=== PATIENT | female | born 1990 | race Caucasian/White ===

== ENCOUNTER → 2020-06-05 14:05 | Outpatient (CLI) | payer BC, SELFPAY ==
--- NOTE | ~2020-06-05 | US_ITS ---
US breast BI complete INDICATION: Bilateral breast pain TECHNIQUE: Dedicated bilateral breast ultrasound COMPARISON: No prior studies for comparison. FINDINGS: The breasts are composed of normal heterogeneous echotexture without focal solid or cystic mass. IMPRESSION: 1: Normal bilateral breast ultrasound. BI-RADS CATEGORY 1 - NEGATIVE Reviewed, dictated and finalized at location A. STANT STATISTICIAN
== END ==
PROVIDERS: PCP Family Medicine; Visit Provider Family Medicine
DX: N64.4 Mastodynia (principal)
CPT/HCPCS: 76641

== ENCOUNTER → 2020-12-22 05:09 | Outpatient (CLI) | payer BC, SELFPAY ==
[2020-12-22 21:10] LABS: SARS-CoV-2 RNA PCR Positive
== END ==
PROVIDERS: PCP Family Medicine; Visit Provider Nurse Practitioner Family
DX: U07.1 COVID-19 (principal)
CPT/HCPCS: C9803; U0003; U0005

== ENCOUNTER 2021-04-13 10:11 | Observation (INO) | payer BC, SELFPAY ==
[2021-04-13 10:28] VITALS: TEMP 36.6
[2021-04-13 10:31] VITALS: BP 133/72; PULSE 98
[2021-04-13 10:32] VITALS: BP 133/78; PULSE 98
[2021-04-13 10:58] VITALS: BMI 33.7
--- NOTE | 2021-04-13 10:59 | OBADM ---
This patient, Analia Grace, admitted to the OB room OB Post 113 for observation. Patient/family oriented to hospital policies and general routines including ID bracelet, bed and alarms, visiting hours, pain management, procedures, bathroom and other care routines, personal items, smoking policy, room service/diet, and visiting hours. Patient/Family are encouraged to report perceived risks to care and to ask questions if they do not understand what they are told or what they should do.
--- NOTE | 2021-04-13 11:03 | PC.NURSE ---
Pt was sent over from the office after having 3 contractions in 30 minutes. Pt has a UTI per Tung PENA, orders received for SVE and monitoring.
--- NOTE | 2021-04-16 07:27 | PM.OBTRLD ---
OB - Triage/Final Diagnosis Visit Information Date of evaluation: 04/14/21 Reason for evaluation: threatened labor Comments/Additional reasons for admission: I have assessed the risk for this patient, Analia Arron Grace, and determined that she would benefit from observation care.
== END 2021-04-13 12:40 | disposition home or self-care (01) ==
PROVIDERS: Admitting Provider Obstetrics & Gynecology; PCP Family Medicine; Visit Provider Obstetrics & Gynecology
DX: O47.03 False labor before 37 completed weeks of gestation, third trimester (principal); Z3A.30 30 weeks gestation of pregnancy
CPT/HCPCS: G0378; G0379

== ENCOUNTER 2021-05-30 23:08 | Observation (INO) | payer BC, SELFPAY ==
[2021-05-30 23:25] VITALS: BP 131/80; PULSE 106
[2021-05-30 23:30] VITALS: BP 122/72; PULSE 106
[2021-05-30 23:45] VITALS: BP 132/87; PULSE 107
[2021-05-31] VITALS (18 sets, daily range): BP systolic 117–142; BP diastolic 66–91; PULSE 88–107; TEMP 36.8–37.2; BMI 33.8
--- NOTE | 2021-05-31 02:09 | OBADM ---
This patient, Analia Grace, admitted to the OB room Labor/Delivery/Recovery 105 for observation. Patient/family oriented to hospital policies and general routines including ID bracelet, bed and alarms, visiting hours, pain management, procedures, bathroom and other care routines, personal items, smoking policy, room service/diet, and visiting hours. Patient/Family are encouraged to report perceived risks to care and to ask questions if they do not understand what they are told or what they should do.
[2021-05-31 02:13] LABS: Add Urine Microscopic? YES; Appearance Urine Clear (Clear); Bacteria Urine Trace /hpf; Bilirubin Urine Negative (Negative); Blood Urine Negative (Negative); Color Urine Amber (Yellow); Glucose Urine UA Negative (Negative); Ketones Urine 2+ mg/dL (Negative); Leukocyte Esterase Ur Negative LEU/UL (NEGATIVE); Mucus Urine Few /lpf; Nitrate Urine Negative (Negative); Protein Urine 1+ mg/dL (Negative); Squamous Epithelial Cell Urine Many /hpf (Few); WBC Urine 0-3 /hpf (0-3)
[2021-05-31] MEDS: LACTATED RINGERS 500 ML 999 ML IV CONT (02:40)
[2021-05-31 02:49] LABS: Hematocrit 33.1 % (37.0-47.0); Hemoglobin 11.2 g/dL (12.0-15.0); Mean Corpuscular HGB Conc 33.8 g/dl (32-36); Mean Corpuscular Hemoglobin 29.6 pg (26-34); Mean Corpuscular Volume 87.6 fl (80-100); Mean Platelet Volume 12.1 fl (7.4-10.4); Platelet Count Result 135 k/mm3 (150-375); Red Blood Count 3.78 M/mm3 (4.2-5.4); Red Cell Distribution Width 12.9 % (11.5-14.5); White Blood Count 6.5 K/mm3 (4.5-10.0)
--- NOTE | 2021-06-02 18:09 | PM.OBTRLD ---
OB - Triage/Final Diagnosis Visit Information Date of evaluation: 05/31/21 Reason for evaluation: threatened labor Comments/Additional reasons for admission: I have assessed the risk for this patient, Analia Grace, and determined that she would benefit from observation care. Evaluation Laboratory results: Laboratory Tests 05/31/21 05/31/21 01:38 02:38 WBC 6.5 RBC 3.78 L Hgb 11.2 L Hct 33.1 L MCV 87.6 MCH 29.6 MCHC 33.8 RDW 12.9 Plt Count 135 L MPV 12.1 H Urine Color Claudine Urine Appearance Clear Urine pH 6.0 Ur Specific [place] 1.030 Urine Protein 1+ H Urine Glucose (UA) Negative Urine Ketones 2+ H Ur Blood (Man) Negative Urine Nitrate Negative Urine Bilirubin Negative Urine Urobilinogen 2.0 H Ur Leukocyte Esterase Negative Urine RBC 3-5 H Urine WBC 0-3 Ur Squamous Epith Cells Many H Urine Bacteria Trace Hyaline Casts 1-2 Urine Mucus Few H
== END 2021-05-31 04:20 | disposition home or self-care (01) ==
PROVIDERS: Advanced Practice Midwife; Admitting Provider Obstetrics & Gynecology; PCP Family Medicine; Visit Provider Obstetrics & Gynecology
DX: O47.1 False labor at or after 37 completed weeks of gestation (principal); Z3A.37 37 weeks gestation of pregnancy
CPT/HCPCS: 36415; 81001; 85027; 96374; G0378; G0379; J0131; J7120

== ENCOUNTER 2021-06-03 18:15 | Observation (INO) | payer BC, SELFPAY ==
[2021-06-03 20:00] VITALS: TEMP 36.8; BMI 33.3
[2021-06-03 22:31] VITALS: BP 125/82; PULSE 78
[2021-06-03 23:01] VITALS: BP 99/49; PULSE 101
[2021-06-03] MEDS: ONDANSETRON INJ 4 MG/2 ML VIAL IV PUSH (23:22)
[2021-06-03] MEDS: LACTATED RINGERS 1,000 ML 125 ML IV CONT (23:23)
[2021-06-03] MEDS: fentaNYL CITRATE INJ (*CRX) 100 MCG/2 ML VIAL 50 MCG IV PUSH (23:23)
[2021-06-03 23:26] LABS: Glucose Point of Care 101 mg/dl (65-105)
[2021-06-03 23:30] VITALS: BP 120/79; PULSE 67
[2021-06-04] VITALS (16 sets, daily range): BP systolic 119–135; BP diastolic 72–85; PULSE 65–83; TEMP 36.3–37.1
[2021-06-04] MEDS: fentaNYL CITRATE INJ (*CRX) 100 MCG/2 ML VIAL IV PUSH (01:38)
--- NOTE | 2021-06-09 07:32 | PM.OBTRLD ---
OB - Triage/Final Diagnosis Visit Information Date of evaluation: 06/03/21 Reason for evaluation: threatened labor Comments/Additional reasons for admission: I have assessed the risk for this patient, Analia Heller Sanjay, and determined that she would benefit from observation care. Evaluation Laboratory results: Laboratory Tests 06/03/21 23:21 POC Capillary Glucose 101
== END 2021-06-04 07:30 | disposition home or self-care (01) ==
PROVIDERS: Admitting Provider Obstetrics & Gynecology; PCP Family Medicine; Visit Provider Obstetrics & Gynecology
DX: O47.1 False labor at or after 37 completed weeks of gestation (principal); Z3A.37 37 weeks gestation of pregnancy
CPT/HCPCS: 82948; 96374; 96375; 96376; G0378; G0379; J2405; J3010; J7120

== ENCOUNTER 2021-06-05 23:27 | Inpatient (IN) | payer BC, SELFPAY ==
[2021-06-05 23:45] VITALS: RESP 18; TEMP 36.6
[2021-06-06] VITALS (95 sets, daily range): BP systolic 68–147; BP diastolic 50–102; PULSE 49–92; RESP 14–18; TEMP 36.2–36.8; O2SAT 92–100; BMI 34.3
--- OUTSIDE RECORDS SUMMARY | 2021-06-06 | XMS_ITS | Encounter Summary ---
:1990 Author Care Team Providers Name Role Phone Marylu Frank MD Primary Care Provider [phone] Reason for Visit None recorded. Assessment and Plan 1. Gestational diabetes mellitus , class A>2< ? non-stress test Discussion Note: None recorded.Patient educational handouts: No information available. Plan of Care Reminders Provider Appointments Nst Nst, , EQ UIP 06/08/2021 8:30AM ? Nst Nst, , EQUI P 06/11/2021 9:15AM ? Ob Routine Nova Rogers, 06/11/2021 CNM 9:45AM ? Nst Nst, , EQUI P 06/15/2021 8:30AM ? Induction Tiera The rese 06/15/2021 MD Delta 6:00AM ? Nst Nst, , EQUI P 06/18/2021 9:15AM ? Ob Routine Tiera Bing erese 06/18/2021 MD [place] 9:45AM ? Nst Nst, , EQUI P 06/22/2021 8:30AM ? Nst Nst, , EQUI P 06/25/2021 8:30AM ? U/s Ob Growth Ult rasound Two,
--- OUTSIDE RECORDS SUMMARY | 2021-06-06 | XMS_ITS | Encounter Summary ---
:1990 Author Care Team Providers Name Role Phone Marylu Frank MD Primary Care Provider [phone] Reason for Visit OB visit Assessment and Plan 1. Gestational diabetes mellitus 2. History of hemolysis-elevated liver enzymes-low platelet count syndrome 3. Candidiasis of vagina ? Diflucan 150 mg tablet Discussion Note: None recorded.Patient educational handouts: No [...] P 06/18/2021 9:15AM ? Ob Routine Tiera villanueva 06/18/2021 MD [place] 9:45AM ? Nst Nst, , EQUI P 06/22/2021 8:30AM ? Nst Nst, , EQUI P
--- OUTSIDE RECORDS SUMMARY | 2021-06-06 | XMS_ITS ---
:1990 Author Care Team Providers Name Role Phone DONTE MCCLURE MD Primary Care Provider [phone] Allergies Code Code System Name Reaction Severity Status Onset 0738049 RxNorm Latex ? ? Active ? Medications Name Status Start Date Stop Date ? ? albuterol sulfate HFA 90 mcg/actuation aerosol inhaler Active ? Not available INHALE 2 PUFFS BY MOUTH EVERY 4 HOURS alprazolam 0.5 mg tablet Completed ? 021 TAKE 1 TABLET BY MOUTH EVERY DAY NEEDED aspirin Active ? Not available atenolol 25 mg tablet Completed ? 12/18/2020 TAKE 1 TABLET BY MOUTH EVERY DAY azithromycin 250 mg tablet Completed ? 12/18 TK 2 TS PO ON DAY 1, THEN TK 1 T PO D FOR 4 DAYS Cipro 500 mg tablet Completed 08/29/2013 03/06/2014 take 1 tablet (500MG) by oral route every 12 hours Contour Next Meter Active ? Not available USE TO TEST FOUR TIMES DAILY. Contour Next Test Strips Active ? Not camelia ilable Diflucan 100 mg tablet Completed 07/05/2016 7 take 1 tablet by oral route every day [place]se 50-30 (6)/75-40(5)/125-30(10) tablet Completed 12/12/2016 take 1 tablet by oral route every day for 28 days fluconazole 150 mg tablet Active ? Not av ailable TAKE 1 TABLET BY MOUTH DIRECTED insulin syringe U-100 with needle Active ? Not available 0.3 mL 31 gauge x 5/16 Lutera (28) 0.1 mg-20 mcg tablet Completed 11/04/2011 08/14/2012 take 1 tablet by oral route every day metformin 1,000 mg tablet Active ?
--- OUTSIDE RECORDS SUMMARY | 2021-06-06 | XMS_ITS | Encounter Summary ---
:1990 Author Care Team Providers Name Role Phone Marylu Frank MD Primary Care Provider [phone] Reason for Visit None recorded. Assessment and Plan 1. Gestational diabetes mellitus , class A>2< Pt here for diet teaching. Arlen t over ideal ranges for FBS and pp BS. Went over carb counting and carb ranges for each meal/snack. Gave ideas for foods to eat for meals/snacks. Discussed drink options and to avoid soda and juice. Jhoan d pt she can go online to [employer] for meal options or to look up low carb meal recipes online for ideas as well. Pt is a transfer of care from [facility] and they did an ea rly 1 hr GTT that was abnormal and 3hr G TT was abnormal. She has been checking BS QID for a month. Her FBS are elevated and she was started on 500mg Metformin at HS by [facility]. Told pt to continue checking BS QID and adjusting diet to follow low carb diet to try to keep BS within normal range. Pt is having a lot of nausea and isn't hungry and is having to force herself to eat, so doesn't have very consis tent PP BS. Pt aware of importance of tr andrey to eat meals/snacks and checking BS QID so we know how her sugars are after eating. Pt was rx Zofran by Dr. Sorenson at her last appt and just took her first d ose this morning. Told pt to continue ta kennedy this routinely to help keep nausea under control so she can eat. Pt aware if fasting sugars aren't improving with Metformin we might need to discuss starting insulin. Pt has a needle phobia and ayo lly wants to avoid this. Discussed sugars with AD and Metformin increased to 1000mg at HS. Discussed needing to start NSTs at 32 weeks and serial growth u/s r/t G DM. Pts questions were answered and pt v erbalized understanding. bnwhoctavio RN ? non-stress test Discussion Note: None recorded.Patient educational handouts: No information available. Plan of Care Reminders Provider Appointments Alaina Foley, , ERIC P 06/08/2021 8:30AM ? Alaina
--- OUTSIDE RECORDS SUMMARY | 2021-06-06 | XMS_ITS | Encounter Summary ---
:1990 Author Care Team Providers Name Role Phone Marylu Frank MD Primary Care Provider [phone] Reason for Visit OB visit Assessment and Plan 1. Gestational diabetes mellitus 2. History of hemolysis-elevated liver enzymes-low platelet count syndrome Discussion Note: None recorded.Patient educational handouts: No [...] 06/18/2021 9:15AM ? Ob Routine Tiera Bing villanueva 06/18/2021 MD Delta 9:45AM ? Nst Nst, , EQUI P 06/22/2021 8:30AM ? Nst Nst, , EQUI P 06/25/2021 8:30AM ? U/s Ob Growth
--- OUTSIDE RECORDS SUMMARY | 2021-06-06 | XMS_ITS | Encounter Summary ---
:1990 Author Care Team Providers Name Role Phone Marylu Frank MD Primary Care Provider [phone] Reason for Visit None recorded. Assessment and [...]
--- OUTSIDE RECORDS SUMMARY | 2021-06-06 | XMS_ITS | Encounter Summary ---
:1990 Author Care Team Providers Name Role Phone Marylu Frank MD Primary Care Provider [phone] Reason for Visit None recorded. Assessment and [...]
--- OUTSIDE RECORDS SUMMARY | 2021-06-06 | XMS_ITS | Encounter Summary ---
:1990 Author Care Team Providers Name Role Phone Marylu Frank MD Primary Care Provider [phone] Reason for Visit OB problem f/u L&D Assessment and Plan 1. False labor pains Discussion Note: None recorded.Patient educational handouts: No [...] P 06/18/2021 9:15AM ? Ob Routine Tiera Th erese 06/18/2021 MD [place] 9:45AM ? Nst Nst, , EQUI P 06/22/2021 8:30AM ? Nst Nst, , EQUI P 06/25/2021 8:30AM ? U/s Ob Growth Ult rasound Two, 06/25/2021 TECH
--- OUTSIDE RECORDS SUMMARY | 2021-06-06 | XMS_ITS | Encounter Summary ---
:1990 Author Care Team Providers Name Role Phone Marylu Frank MD Primary Care Provider [phone] Reason for Visit OB visit Assessment and Plan 1. Gestational diabetes mellitus 2. Group B Streptococcus carrier 3. History of hemolysis-elevated liver enzymes-low platelet count [...]
--- OUTSIDE RECORDS SUMMARY | 2021-06-06 | XMS_ITS | Encounter Summary ---
:1990 Author Care Team Providers Name Role Phone Marylu Frank MD Primary Care Provider [phone] Reason for Visit None recorded. Assessment and Plan 1. Gestational diabetes mellitus , class A>1< ? US, obstetric, follow-up Discussion Note: None recorded.Patient educational handouts: No [...]
--- OUTSIDE RECORDS SUMMARY | 2021-06-06 00:01 | XMS_ITS | Encounter Summary ---
:1990 Author Care Team Providers Name Role Phone Marylu Frank MD Primary Care Provider [phone] Reason for Visit OB visit Assessment and Plan 1. -induced hypertensio n ? uric acid, serum or plasma ? CMP, serum or plasma ? CBC w/ auto diff ? protein:creatinine ratio, urine 2. History of hemolysis-elevated liver enzymes-low platelet [...]
--- OUTSIDE RECORDS SUMMARY | 2021-06-06 00:01 | XMS_ITS ---
:1990 Author Care Team Providers Name Role Phone Marylu Frank Primary Care Provider Unavailable Allergies Code Code System Name Reaction Severity Status Onset 5485 RxNorm Hydrocodone Nausea ? Active ? Notes: Hydrocodone Medications Name Status Start Date Stop Date ? ? albuterol sulfate HFA 90 mcg/actuation aerosol inhaler Active ? Not available INHALE 2 PUFFS BY MOUTH EVERY 4 HOURS alprazolam 0.5 mg tablet Active ? Not camelia ilable TAKE 1 TABLET BY MOUTH EVERY DAY NEEDED atenolol 25 mg tablet Active ? Not availa ble TAKE 1 TABLET BY MOUTH EVERY DAY loteprednol etabonate 0.5 % eye Completed ? 06/15/2020 drops,suspension prochlorperazine maleate 5 mg Active ? No t available tablet propranolol 10 mg tablet Completed ? 021 TAKE 1 TABLET BY MOUTH DAILY FOR MIGRAINE . REPLACES ATENOLOL sulfamethoxazole 800 mg-trimethoprim 160 mg tablet Completed ? 05/12/2020 TAKE 1 TABLET BY MOUTH EVERY 12 HOURS FOR 7 DAYS sumatriptan 100 mg tablet Active 06/26/2020 Not av ailable 1/2 to 1 tab po qday prn migraine, do not exceed 1 tab in 24 ho urs verapamil 40 mg tablet Active ? Not avail able Problems Name Status Onset Date Source ? Anemia Active 04/14/2020 ? History of Pre-eclampsia Active 04/14/2020 ? Dysmenorrhea Active 05/12/2020 ? Procedures Date Name Performed by ? 05/12/2020 US, Breast, Bilateral [facility]
--- OUTSIDE RECORDS SUMMARY | 2021-06-06 00:01 | XMS_ITS | Encounter Summary ---
:1990 Author Care Team Providers Name Role Phone Marylu Frank MD Primary Care Provider [phone] Reason for Visit None recorded. Assessment and [...]
--- OUTSIDE RECORDS SUMMARY | 2021-06-06 00:01 | XMS_ITS | Encounter Summary ---
:1990 Author Care Team Providers Name Role Phone Marylu Frank MD Primary Care Provider [phone] Reason for Visit OB visit Assessment and Plan Assessment Note Patient is ___weeks . Discu ssed plan. 1. Routine care Discussion Note: None recorded.Patient educational handouts: No [...]
--- OUTSIDE RECORDS SUMMARY | 2021-06-06 00:01 | XMS_ITS | Encounter Summary ---
:1990 Author Care Team Providers Name Role Phone Marylu Frank MD Primary Care Provider [phone] Reason for Visit OB visit Assessment and [...]
--- OUTSIDE RECORDS SUMMARY | 2021-06-06 00:01 | XMS_ITS ---
:1990 Author Care Team Providers Name Role Phone Marylu Frank Primary Care Provider Unavailable Allergies Code Code System Name Reaction Severity Status Onset 5489 RxNorm Hydrocodone Nausea ? Active ? Notes: [...] MOUTH EVERY DAY azithromycin 250 mg tablet Active ? Not a vailable TK 2 TS PO ON DAY 1, THEN TK 1 T PO D FOR 4 DAYS ketorolac 30 mg/mL (1 mL) injection solution Active ? Not available Inject 1 mL every 6 hours by intramuscular route. loteprednol etabonate 0.5 % eye Completed ? 06/15/2020 drops,suspension prochlorperazine maleate 5 mg tablet Active ? Not available TAKE 1 TABLET BY MOUTH EVERY 4 HOURS FOR 5 DAYS NEEDED propranolol 10 mg tablet Active ? Not camelia ilable TAKE 1 TABLET BY MOUTH DAILY FOR MIGRAINE . REPLACES ATENOLOL sulfamethoxazole 800 mg-trimethoprim 160 mg tablet Active ? Not available TAKE 1 TABLET BY MOUTH EVERY 12 HOURS FOR 7 DAYS sumatriptan 100 mg tablet Active 06/26/2020 Not av ailable 1/2 to 1 tab po qday prn migraine, do not exceed 1 tab in 24 ho urs verapamil 40 mg tablet Active ? Not avail able TAKE 1 TABLET BY MOUTH THREE TIMES DAILY Problems
--- OUTSIDE RECORDS SUMMARY | 2021-06-06 00:01 | XMS_ITS | Encounter Summary ---
:1990 Author Care Team Providers Name Role Phone Marylu Frank MD Primary Care Provider [phone] Reason for Visit OB problem pt is here today c/o pelvic discomfort, frequency/urgency with urination. small output of urine x 3 days. Pt has taken AZO and unable to dip. Assessment and Plan 1. Routine care Discussion Note: None recorded.Patient educational handouts: No information available. Plan of Care Reminders Provider Appointments Nst Nst, , EQ UIP 06/08/2021 8:30AM ? Nst Nst, , EQUI P 06/11/2021 9:15AM ? Ob Routine Nova Rogers, 06/11/2021 CNM 9:45AM ? Nst Nst, , EQUI P 06/15/2021 8:30AM ? Induction Tiera Lia rese 06/15/2021 MD Delta 6:00AM ? Nst Nst, , EQUI P 06/18/2021 9:15AM ? Ob Routine Tiera villanueva 06/18/2021 MD [place] 9:45AM ? Nst Nst, , EQUI P 06/22/2021 8:30AM ? Nst Nst, , EQUI P 06/25/2021 8:30AM ? U/s Ob Growth
--- OUTSIDE RECORDS SUMMARY | 2021-06-06 00:01 | XMS_ITS | Encounter Summary ---
:1990 Author Care Team Providers Name Role Phone Marylu Frank MD Primary Care Provider [phone] Reason for Visit None recorded. Assessment and [...]
--- OUTSIDE RECORDS SUMMARY | 2021-06-06 00:01 | XMS_ITS | Encounter Summary ---
:1990 Author Care Team Providers Name Role Phone Marylu Frank MD Primary Care Provider [phone] Reason for Visit OB visit Assessment and Plan 1. Gestational diabetes mellitus Discussion Note: None recorded.Patient educational handouts: No [...] Ob Growth Ult rasound Two, 06/25/2021 TECH 9:00AM
--- OUTSIDE RECORDS SUMMARY | 2021-06-06 00:01 | XMS_ITS | Encounter Summary ---
:1990 Author Care Team Providers Name Role Phone Marylu Frank MD Primary Care Provider [phone] Reason for Visit NST [id number] EDC 06/22/2021 patient also c omplaining of contractions, cramping, and low back pain. dip urine was normal. Marylu came in and talked with patient and gave procations. Assessment and Plan 1. Gestational diabetes mellitus , class A>1< ? non-stress test 2. Low back pain ? urinalysis, dipstick Discussion Note: None recorded.Patient educational handouts: No information available. Plan of Care Reminders Provider Appointments Nst Nst, , EQ UIP 06/08/2021 8:30AM ? Nst Nst, , EQUI P 06/11/2021 9:15AM ? Ob Routine Nova Rogers, 06/11/2021 CNM 9:45AM ? Nst Nst, , EQUI P 06/15/2021 8:30AM ? Induction Tiera The [place] 06/15/2021 MD Delta 6:00AM ? Nst Nst, , EQUI P 06/18/2021 9:15AM ? Ob Routine Tiera villanueva 06/18/2021 MD [place] 9:45AM ? Nst Nst, , EQUI P 06/22/2021
--- OUTSIDE RECORDS SUMMARY | 2021-06-06 00:01 | XMS_ITS | Encounter Summary ---
:1990 Author Care Team Providers Name Role Phone Marylu Frank MD Primary Care Provider [phone] Reason for Visit None recorded. Assessment and [...]
--- OUTSIDE RECORDS SUMMARY | 2021-06-06 00:01 | XMS_ITS | Encounter Summary ---
:1990 Author Care Team Providers Name Role Phone Marylu Frank MD Primary Care Provider [phone] Reason for Visit None recorded. Assessment and [...]
--- OUTSIDE RECORDS SUMMARY | 2021-06-06 00:01 | XMS_ITS | Encounter Summary ---
:1990 Author Care Team Providers Name Role Phone Marylu Frank MD Primary Care Provider [phone] Reason for Visit OB visit Assessment and Plan Assessment Note Patient is _25__weeks . Dis cussed plan. 1. Routine care Discussion Note: None [...]
[2021-06-06 00:32] LABS: Basophils Percent Auto 0.5 % (0.2-1.2); Eosinophils Absolute Auto 0.1 K/mm3 (0-0.3); Eosinophils Percent Auto 1.3 % (0-4.4); Hematocrit 31.6 % (37.0-47.0); Hemoglobin 10.7 g/dL (12.0-15.0); Immature Granulocyte Absolute 0.01 K/mm3 (0.00-0.031); Immature Granulocyte Percent A 0.2 % (0-0.5); Lymphocytes Absolute Auto 1.88 K/mm3 (0.9-3.2); Lymphocytes Percent Auto 34.1 % (18.3-44.2); Mean Corpuscular HGB Conc 33.9 g/dl (32-36); Mean Corpuscular Hemoglobin 29.6 pg (26-34); Mean Corpuscular Volume 87.3 fl (80-100); Mean Platelet Volume 12.4 fl (7.4-10.4); Monocytes Absolute Auto 0.5 K/mm3 (0.1-0.6); Monocytes Percent Auto 9.8 % (2.6-8.5); Neutrophils Percent Auto 54.1 % (45.5-73.1); Platelet Count Result 159 k/mm3 (150-375); Red Blood Count 3.62 M/mm3 (4.2-5.4); Red Cell Distribution Width 13.1 % (11.5-14.5); White Blood Count 5.5 K/mm3 (4.5-10.0)
[2021-06-06] MEDS: LACTATED RINGERS 1,000 ML 125 ML IV CONT ×2 (00:41→10:32)
[2021-06-06] MEDS: AMPICILLIN 2 GM/NS 100 ML 2 GM/100 ML BAG IVPB (00:43)
[2021-06-06] MEDS: OXYTOCIN 30 UNITS/NS 500 ML 30 UNITS/500 ML BAG IV CONT (00:46)
--- NOTE | 2021-06-06 00:57 | LDADM ---
This patient, Analia Grace, was admitted to Labor/Delivery/Recovery 106 on 06/05/21 at 23:27. Plans for labor, pain management and were discussed with patient. Patient/family oriented to hospital policies and general routines including ID bracelet, bed and alarms, visiting hours, pain management, procedures, bathroom and other care routines, personal items, smoking policy, room service/diet and guest tray routines, security routines, and visiting hours. Patient/Family are encouraged to report perceived risks to care and to ask questions if they do not understand what they are told or what they should do. See OBIX for further documentation.
[2021-06-06 01:09] LABS: Glucose Point of Care 72 mg/dl (65-105)
[2021-06-06] MEDS: CALCIUM CARBONATE (TUMS) 500 MG (200 MG ELEMENTAL) PO (01:10)
[2021-06-06 01:22] LABS: Alanine Aminotransferase 33 U/L (4-35); Albumin Level 3.3 g/dL (3.5-5.1); Alkaline Phosphatase 143 U/L (38-126); Anion Gap 6 mmol/L (8-16); Aspartate Amino Transferase 31 U/L (14-36); Bilirubin,Total 1.1 mg/dL (0.2-1.3); Blood Urea Nitrogen 11 mg/dL (7-17); Carbon Dioxide 20 mmol/L (22-30); Chloride 107 mmol/L (98-107); Estimated CRCL calculation 147 ml/min; Estimated Glomerular Filt Rate > 60; Glucose 87 mg/dL (65-110); Potassium 3.4 mmol/L (3.4-5.0); Sodium 133 mmol/L (137-145)
[2021-06-06] MEDS: FAMOTIDINE 20 MG TABLET PO (03:10)
[2021-06-06] MEDS: AMPICILLIN 1 GM/NS 50 ML 1 GM/50 ML BAG IVPB ×2 (04:30→08:45)
[2021-06-06 04:42] LABS: Glucose Point of Care 78 mg/dl (65-105)
[2021-06-06] MEDS: ONDANSETRON INJ 4 MG/2 ML VIAL IV PUSH (06:18)
[2021-06-06] MEDS: fentaNYL CITRATE INJ (*CRX) 100 MCG/2 ML VIAL 50 MCG IV PUSH ×2 (06:21→08:43)
[2021-06-06 08:54] LABS: Glucose Point of Care 70 mg/dl (65-105)
--- NOTE | 2021-06-06 09:15 | WPDOBADMIT ---
Obstetrics - Admit Note Admission Note: 30 y/o here with leaking fluid. Rom plus was positive but no other leaking since admission. Reviewed chart and patient does have blood pressures on this visit and last visit that rule in as gestational hypertension. Pt also likely has cholestasis but labs are still pending. Decision was made to proceed with augmentation. record reviewed. No pertinent additions to the history and/or any subsequent changes in the physical findings that are not consistent with the expected course of the were found. Additions to the history and/or subsequent changes in the physical findings follow. None.
[2021-06-06] MEDS: LACTATED RINGERS 1,000 ML 999 ML IV CONT (09:32)
[2021-06-06] MEDS: fentaNYL CITRATE INJ (*CRX) 100 MCG/2 ML VIAL IV PUSH (09:54)
--- NOTE | 2021-06-06 10:31 | WPDANESEPPF ---
Anes - Initial Pre Proc Eval Procedure: labor epidural Date/Time: 06/06/21 10:31 Surgeon: Stefanie Layton MD Pre Op Diagnosis: labor pain Pre Op Diagnosis: leaking fluid Patient Data Age: 30 Gender: F Height: 1.6 m Weight: 88 kg Last Vital Signs Temp 36.6 C 06/06/21 08:52 Pulse 68 06/06/21 10:30 Resp 18 06/06/21 05:00 BP 120/88 06/06/21 10:30 Pulse Ox 99 06/06/21 10:29 Allergies Allergy/AdvReac Type Severity Reaction Status Date / Time latex Allergy Rash Verified 05/31/21 02:29 Home Medications Medication Instructions Recorded Confirmed Type Humulin N NPH U-100 Insulin 8 unit SUBCUT HS 05/31/21 06/06/21 History aspirin 81 mg PO DAILY 05/31/21 06/06/21 History metformin 1,000 mg PO DAILY 05/31/21 06/06/21 History Laboratory Tests 06/06/21 06/06/21 06/06/21 00:15 00:15 00:15 WBC 5.5 K/mm3 K/mm3 (4.5-10.0) RBC 3.62 M/mm3 L M/mm3 (4.2-5.4) Hgb 10.7 g/dL L g/dL (12.0-15.0) Hct 31.6 % L % (37.0-47.0) MCV 87.3 fl fl (80-100) MCH 29.6 pg pg (26-34) MCHC 33.9 g/dl g/dl (32-36) RDW 13.1 % % (11.5-14.5) Plt Count 159 k/mm3 k/mm3 (150-375) MPV 12.4 fl H fl (7.4-10.4) Immature Gran % (Auto) 0.2 % % (0-0.5) Neut % (Auto) 54.1 % % (45.5-73.1) Lymph % (Auto) 34.1 % % (18.3-44.2) [place] % (Auto) 9.8 % H % (2.6-8.5) Eos % (Auto) 1.3 % % (0-4.4) Baso % (Auto) 0.5 % % (0.2-1.2) Lymph # (Auto) 1.88 K/mm3 K/mm3 (0.9-3.2) [place] # (Auto) 0.5 K/mm3 K/mm3 (0.1-0.6) Eos # (Auto) 0.1 K/mm3 K/mm3 (0-0.3) Baso # (Auto) 0.0 K/mm3 K/mm3 (0.0-0.1) Abs Immat Gran (auto) 0.01 K/mm3 K/mm3 (0.00-0.031) Absolute Neuts (auto) 3.0 K/mm3 K/mm3 (1.3-6.7) Absolute Nucleated RBC 0.0 K/mm3 K/mm3 (0.0-0.012) Nucleated RBC % 0.0 % % (0.0-0.2) Sodium Potassium Chloride Carbon Dioxide Anion Gap BUN Creatinine Estim Creat Clear Calc Estimated GFR Glucose POC Capillary Glucose Calcium Total Bilirubin AST ALT Alkaline Phosphatase Total Protein Albumin RPR Pending Blood Type O Positive Antibody Screen Negative 06/06/21 06/06/21 06/06/21 01:04 01:07 04:36 WBC RBC Hgb Hct MCV MCH MCHC RDW Plt Count MPV Immature Gran % (Auto) Neut % (Auto) Lymph % (Auto) [place] % (Auto) Eos % (Auto) Baso % (Auto) Lymph # (Auto) [place] # (Auto) Eos # (Auto) Baso # (Auto) Abs Immat Gran (auto) Absolute Neuts (auto) Absolute Nucleated RBC Nucleated RBC % Sodium 133 mmol/L L mmol/L (137-145) Potassium 3.4 mmol/L mmol/L (3.4-5.0) Chloride 107 mmol/L mmol/L (98-107) Carbon Dioxide 20 mmol/L L mmol/L (22-30) Anion Gap 6 mmol/L L mmol/L (8-16) BUN 11 mg/dL mg/dL (7-17) Creatinine 0.50 mg/dL L mg/dL (0.7-1.0) Estim Creat Clear Calc 147 ml/min ml/min Estimated GFR > 60 (59 - ) Glucose 87 mg/dL mg/dL (65-110) POC Capillary Glucose 72 mg/dl mg/dl 78 mg/dl mg/dl (65-105) (65-105) Calcium 9.0 mg/dL mg/dL (8.4-10.2) Total Bilirubin 1.1 mg/dL mg/dL (0.2-1.3) AST 31 U/L U/L (14-36) ALT 33 U/L U/L (4-35) Alkaline Phosphatase 143 U/L H U/L (38-126) Total P
[2021-06-06 11:10] LABS: Glucose Point of Care 70 mg/dl (65-105)
--- NOTE | 2021-06-06 12:46 | P.PCNOB_ITS ---
OB - Delivery Note Procedure Delivery date: 06/06/21 Procedure: events: Induced HTN Intrapartal events: None Induction method: none Delivery augmentation: pitocin Delivery monitor: external FHT and external uterine Route of delivery: Episiotomy description: None Laceration Description: None Quantitative Blood Loss (ml): 126 Anesthesia type: Epidural Narrative: Mother and baby in stable condition. Cord gasses collected and handed off to staff. [place] Baby Date of : 06/06/21 Time of : 12:29 Weeks of gestation at delivery: 37 Infant gender: Male presentation: vertex position: Right Occiput Anterior Placenta delivery description: Spontaneous cord vessel description: Delayed Cord Clamping score one minute: 8 score five minutes: 9
[2021-06-06] MEDS: OXYTOCIN 30 UNITS/NS 500 ML 30 UNITS/500 ML BAG 125 UNITS IV CONT (13:03)
[2021-06-06] MEDS: BENZOCAINE 20% AER SPR (*SP) 56 GM CAN 1 SPRAY TOPICAL (15:28)
[2021-06-06] MEDS: IBUPROFEN 600 MG TABLET PO ×2 (15:28→22:00)
[2021-06-06] MEDS: ACETAMINOPHEN 325 MG TABLET 650 MG PO (19:29)
[2021-06-06] MEDS: DOCUSATE SODIUM 100 MG CAPSULE PO (22:01)
[2021-06-07 00:25] VITALS: BP 96/48; PULSE 74; RESP 16; TEMP 36.3
[2021-06-07] MEDS: ACETAMINOPHEN 325 MG TABLET 650 MG PO ×3 (02:43→20:38)
[2021-06-07 05:41] LABS: Hematocrit 28.3 % (37.0-47.0); Hemoglobin 9.7 g/dL (12.0-15.0)
[2021-06-07 05:50] LABS: Glucose 109 mg/dL (65-110)
[2021-06-07 06:08] LABS: Rapid Plasma Reagin Non-Reactive (NonReactive)
[2021-06-07] MEDS: DOCUSATE SODIUM 100 MG CAPSULE PO ×2 (07:16→16:36)
[2021-06-07] MEDS: MULTIVIT/MIN/PREN/FOL AC/IRON TABLET 1 TAB PO (07:16)
[2021-06-07] MEDS: POLYSACCHARIDE IRON COMPLEX 150 MG CAPSULE PO ×2 (07:16→16:36)
[2021-06-07] MEDS: IBUPROFEN 600 MG TABLET PO ×2 (07:16→16:36)
--- NOTE | 2021-06-07 08:06 | PM.OBPNVD ---
OB - PN: Subj Subjective Date/time seen: 06/07/21 08:06 Patient comments: no complaints baby status: doing well OB - PN: Obj Data Labs CBC & Chem 7: 06/07/21 05:32 06/07/21 05:32 Labs: Laboratory Results - last 24 hr 06/06/21 06/06/21 06/06/21 00:15 08:49 10:58 Hgb Hct Glucose POC Capillary Glucose 70 70 RPR Non-reactive 06/07/21 06/07/21 05:32 05:32 Hgb 9.7 L Hct 28.3 L Glucose 109 POC Capillary Glucose RPR OB - PN A/P Plan day: 1 Plan: routine care Time Spent With Patient Time: Total time spent is greater than 50% in coordination of care (as documented) at patient's floor/unit and/or counseling patient: Time with patient: less than 15 minutes Review of Systems Review of Systems: All systems reviewed & are unremarkable except as noted in HPI and below Exam Narrative: Fundus firm and vaginal flow controlled. No lower ext redness, warmth, or edema. Negative homans. Denies h/a, v/d or e/p. Reflexes normal. Const: General: comfortable Chest: Breast/axilla inspection: normal inspection of the breasts Resp: Effort & Inspection: normal respiratory effort Cardio: Rate: regular rate GI: GI Palp: Yes Soft to palpation Psych: Appearance: grossly normal Affect: normal affect Attitude: cooperative Thought content: Yes Normal thought content present Judgement: Good judgement present (Psych)
[2021-06-07 08:20] VITALS: BP 120/79; PULSE 70; RESP 18; TEMP 36.6; O2SAT 99
--- NOTE | 2021-06-07 09:39 | PC.NURSE ---
0800 - Introductions were made and mother led the discussion of her desires and plans to feeding her baby. Reviewed handwashing to prevent infection before and after taking care of her baby. Mother verbalizes she is able to independently latch . Reinforced to watch for early feeding cues, place skin to skin, then feeding baby when is ready or every 2-3 hours. Mom states she had a lazy latch last night and her nipples were red, tender, misshapen and bled just a little. Nipples assessed. Right nipple is red and misshaped. Left nipple is slightly red on the tip. Reviewed there is to be no pain with . Mother states her nipple tenderness is relieved with improving positioning and effective latching. was fed recently and has a pacifier in mouth. Reviewed risk and benefits of a pacifier, watching for feeding cues for responsive feeding or how to stimulate infant to initiate from the start of the last feeding. Mother voiced understanding to place skin to skin and feed infant when she sees feeding cues, 8-12 times in 24 hours approximately every 2-3 hours from the start of the last feeding or she has discomfort with nursing. Baby was taken to the nursery by other staff for a circumcision. Encouraged mom to place infant skin to skin after the circumcision, watch for feeding cues to breastfeed. Mother voiced understanding. Reported to primary RN.
[2021-06-07 11:48] VITALS: BP 135/89; PULSE 80; RESP 16; TEMP 36.6; O2SAT 99
[2021-06-07 16:15] VITALS: BP 134/80; PULSE 81
[2021-06-07 19:30] VITALS: BP 124/77; PULSE 70; RESP 16; TEMP 37; O2SAT 99
[2021-06-08 00:45] VITALS: BP 112/70; PULSE 76; RESP 16; TEMP 36.8; O2SAT 97
[2021-06-08] MEDS: IBUPROFEN 600 MG TABLET PO ×2 (04:05→10:09)
[2021-06-08 06:06] VITALS: BP 119/75; PULSE 70; RESP 16; TEMP 36.7; O2SAT 99
--- NOTE | 2021-06-08 07:39 | PM.OBPNVD ---
OB - PN: Subj Subjective Date/time seen: 06/08/21 07:39 Patient comments: no complaints baby status: doing well [place] feeding status: exclusively breast feeding OB - PN: Obj Data Labs CBC & Chem 7: 06/07/21 05:32 06/07/21 05:32 OB - PN A/P Assessment and Plan (1) , delivered: Code(s): O80 - Encounter for full-term uncomplicated delivery Status: Acute Plan day: 2 Plan: routine care and discharge home Comments: BP great itching resolved FU 1 week DC home today. Time Spent With Patient Time: Total time spent is greater than 50% in coordination of care (as documented) at patient's floor/unit and/or counseling patient: Time with patient: less than 15 minutes Exam Narrative: NAD abdomen soft, nontender, fundus firm below the umbilicus Extremities nontender, 1+ edema
[2021-06-08] MEDS: POLYSACCHARIDE IRON COMPLEX 150 MG CAPSULE PO (07:44)
[2021-06-08] MEDS: DOCUSATE SODIUM 100 MG CAPSULE PO (07:44)
[2021-06-08] MEDS: MULTIVIT/MIN/PREN/FOL AC/IRON TABLET 1 TAB PO (07:44)
--- NOTE | 2021-06-08 07:44 | PM.OBDSVD ---
DS: Admitting Diagnosis Discharge Date 06/08/21 Admitting Diagnosis term IUP, cholestasis, SROM DS: Discharge Diagnosis Discharge Diagnosis (1) , delivered: Code(s): O80 - Encounter for full-term uncomplicated delivery Status: Acute OB - DS: Summary Hospital Course Hospital Course: Pt was admitted for SROM. She was also found to have cholestasis. She was induced with pitocin and had an uncomplicated . Post course was uncomplicated. OB Procedures : NST and Ultrasound OB Procedures Intrapartum: Spontaneous Vag Delivery OB Procedures: : None Peripartum Data Delivery Method: Natural Vaginal complications: none Status at Discharge Functional status at discharge: independent ambulation Time Spent with Patient Time attestation: Total time spent providing and/or coordinating discharge services: DS: Data Data Completed and Pending Pending studies at discharge: Pending at discharge 06/06/21 12:36 Surgical [PTH] Routine Discharge Plan Discharge Attending physician on discharge: Tiera Sorenson Discharging Clinician: Tiera Sorenson Anticipated Discharge Date/Time: 06/08/21 07:42 Patient Disposition: Home, Self-Care Activity: pelvic rest Diet: regular Patient Instructions: Antibiotic Form Stand Alone Forms: General Discharge Information Follow-up/Referrals: Tiera Sorenson MD [Physician] - 1 Week Discharge Medications: Discontinued metformin 1,000 mg Tablet 1,000 mg PO DAILY RF: 0 Humulin N NPH U-100 Insulin 100 unit/mL Suspension 8 unit SUBCUT HS RF: 0 aspirin 81 mg Tablet 81 mg PO DAILY RF: 0 Date of admission: 06/05/21 23:27 Primary Care Provider: Zac,Marylu Reyes Admitting Provider: Stefanie Layton Attending physician on admission: Stefanie Layton Condition: Stable
[2021-06-08 08:05] VITALS: BP 125/61; PULSE 60; RESP 16; TEMP 37.1; O2SAT 98
--- NOTE | 2021-06-08 10:08 | PC.NURSE ---
3645 - Consulted with patient, reviewed infant feeding cues, frequencies, duration of feedings, feeding elimination flow sheet, and signs of adequate intake. Demonstrated stimulation techniques to wake infant for feeding. Assisted with infant to skin to skin. Reviewed positioning/alignment, effective latching for milk production. Mother voiced understanding of effective latch and with having had previous experience. Nipple care reviewed and is to not be uncomfortable. Instructed mother to call out for RN assistance if she is unable to latch infant for feeding or she has discomfort with nursing. Mother demonstrates knowledge of watching for feeding cues (early feeding cues reviewed) for responsive feeding 8-12 times in 24 hours. Mother voiced understanding of information shared. Reported to primary RN who entered the room.
[2021-06-08] MEDS: WITCH HAZEL 40 PADS 1 PAD TOPICAL (10:10)
[2021-06-08] MEDS: BENZOCAINE 20% AER SPR (*SP) 56 GM CAN 1 SPRAY TOPICAL (10:10)
--- NOTE | 2021-06-08 12:11 | PC.NURSE ---
Patient viewed the discharge video Mother & Baby Care, The First Two Weeks . Patient was given the opportunity and encouraged to ask questions. Patient verbalized understanding of information shared and has been given the mother/baby guide for home reference.
== END 2021-06-08 13:15 | disposition home or self-care (01) | DRG 805 ==
LOC: ANHLDR 06-06 00:54 → ANHOB2 06-08 07:44 → ANHLDR 06-09 11:43 → ANHOB2 06-09 11:43
PROVIDERS: Advanced Practice Midwife; Admitting Provider Obstetrics & Gynecology; PCP Family Medicine; Visit Provider Obstetrics & Gynecology
DX: O13.4 Gestational [pregnancy-induced] hypertension without significant proteinuria, complicating childbirth (principal); K83.1 Obstruction of bile duct; Z37.0 Single live birth; O43.193 Other malformation of placenta, third trimester; O26.62 Liver and biliary tract disorders in childbirth; O24.424 Gestational diabetes mellitus in childbirth, insulin controlled; Z3A.37 37 weeks gestation of pregnancy
CPT/HCPCS: 36415; 80053; 82947; 82948; 84112; 85014; 85018; 85025; 86592; 86850; 86900; 86901; 88307; A9270; J0290; J2405; J2590; J2795; J3010; J7120

== ENCOUNTER 2022-03-10 09:46 | Emergency (ER) | payer BC, SELFPAY ==
--- NOTE | 2022-03-10 09:47 | ED.URI ---
HPI - URI/Sore Throat General Chief Complaint: Upper Respiratory Infection Stated Complaint: Coughing, Sinus Time Seen by Provider: 03/10/22 09:47 Source: patient Mode of arrival: ambulatory Limitations: no limitations History of Present Illness HPI Narrative: Ms. Grace is a 31-year-old female patient presenting to clinic today with complaints of coughing and sinus drainage. She reports MD elicited complaint: cough, rhinorrhea and nasal congestion Related Data Allergies Allergy/AdvReac Type Severity Reaction Status Date / Time latex Allergy Rash Verified 03/10/22 10:03 Review of Systems Review of Systems: Pertinent positives per HPI. Patient denies any fever, chills, rash, headache, visual changes, dizziness, shortness of breath, chest pain, palpitations, nausea, vomiting, diarrhea, constipation, abdominal pain, or any urinary issues. PENDING SALE TO [facility] Family History Family History Sibling Mechanical heart valve present Grandparent Heart attack Grandparent Heart attack Cancer Diverticulitis Grandparent Alzheimer disease Grandparent Alzheimer disease Mother Emphysema lung Chronic obstructive pulmonary disease Father Diabetes mellitus Cerebrovascular accident Social History Social History Smoking status: Never smoker Second hand tobacco smoke exposure: No Alcohol intake: never Substance use: never Spiritual care concerns: No Comments At the time of my signature, I reviewed and agree with the nursing past medical, surgical, social, and family history. There is no relevant family history pertinent to the patient complaint. Exam Narrative: General: Well-developed, well nourished, in no apparent distress Head: Normocephalic, atraumatic Eyes: Pupils equally round and reactive to light bilaterally, EOM intact, sclera and conjunctive clear, no discharge, lids normal Ears: TMs intact and clear, ear canals clear, no drainage, grossly hearing normal. Nose: Nares patent, clear nasal discharge, mild inflammation, mild sinus tenderness. Mouth: Oral pharynx without lesions or masses, good dentition, MMM. postnasal drip Neck: Supple, trachea midline, no enlargement of anterior or posterior cervical nodes, no thyroid masses or goiter palpable. Cardio: Regular rate and rhythm, s1 and s2 normal, no murmur appreciated. Resp: Clear to auscultation bilaterally, no rhonchi, rales, wheezing or rubs Course Course Emergency Course: Portions of this record may have been created with voice recognition software. Level of Care: Express Care Visit Vital Signs Vital signs: Vital Signs Temperature 36.7 C 03/10/22 09:59 Pulse Rate 106 H 03/10/22 09:59 Respiratory Rate 18 03/10/22 09:59 Blood Pressure 131/85 03/10/22 09:59 Pulse Oximetry 100 03/10/22 09:59 Oxygen Delivery Room Air 03/10/22 09:59 Temperature 36.7 C 03/10/22 09:59 Pulse Rate 106 H 03/10/22 09:59 Respiratory Rate 18 03/10/22 09:59 Blood Pressure 131/85 03/10/22 09:59 Pulse Oximetry 100 03/10/22 09:59 Oxygen Delivery Room Air 03/10/22 09:59 Vital signs reviewed MDM - URI/Sore Throat MDM Narrative Medical decision making narrative: At the time of the patient is resting comfortably on the exam table. I suspect the patient has upper respiratory infection. Prescriptions for prednisone and albuterol inhaler was sent to the pharmacy as patient reports that she has felt like she has been wheezing. She does have history of asthma and is out of her albuterol inhaler. Supportive measures were discussed with the patient and she voiced understanding of discharge instructions and agrees to treatment plan Differential Diagnosis Differential diagnosis: Likely upper respiratory infection, otitis media, sinusitis, viral infection, bronchitis, influenza, pharyngitis and other (Covid) Discharge Jasmin
[2022-03-10 09:59] VITALS: BP 131/85; PULSE 106; RESP 18; TEMP 36.7; O2SAT 100
== END 2022-03-10 10:11 | disposition home or self-care (01) ==
LOC: EXPCOLL 09:52
PROVIDERS: Emergency Provider Nurse Practitioner Family; PCP Family Medicine
DX: J06.9 Acute upper respiratory infection, unspecified (principal); R09.82 Postnasal drip; J45.909 Unspecified asthma, uncomplicated
CPT/HCPCS: 99213; G0463

== ENCOUNTER 2024-12-23 17:25 | Emergency (ER) | payer BC, SELFPAY ==
--- OUTSIDE RECORDS SUMMARY | 2024-12-23 17:27 | XMS_ITS | Encounter Summary ---
Author Organization [facility] Address [address] [place] [address] Care Team Providers Care Cook Fruit Name Role Phone Maci Harris Primary Care Provider [phone] Bailee Mata LINEN CLERK Unavailable Unavailable Encounter Details Date Type Department Care Team (Late st Contact Info) Description 09/05/2022 PassivSystemst Message Enc [facility] Family & Internal Medicine [place] [id number] [place] [phone] Maci Harris FNP [facility] [place] [address] Sinus Infection? Social History Tobacco Use Types Packs/Day Years Used Date Smoking Tobacco: Never Passive Smoke Exposure: Past Smokeless Tobacco: Never Alcohol Use Standard Drinks/Week Comments Never 0 (1 standard drink = 0.6 oz pur e alcohol) PHQ-2 Answer Date Recorded Patient Health Questionnaire-2 Score 2 08/25/2022 Comments No Sex and Gender Information Value Date Recorded Sex Assigned at Female 07/20/2023 11:47 AM CDT Legal Sex Female 6:04 PM CDT Gender Identity Female 07/20/2023 11:47 AM CDT Sexual Orientation Straight 07/20/2023 11 :47 AM CDT COVID-19 Exposure Response Date Recorded In the last 10 days, have yo u been in contact with someone who was confirmed or suspected to have Coronavirus/COVID-19? No / Unsure 08/25/2022 1:07 PM CDT documented as of this encounter Plan of Treatment Not on file documented as of this encounter Visit Diagnoses Not on filedocumented in this encounter Additional Health Concerns Infection Onset Date Last Indicated Resolved Time COVID-19 Rule Out 07/20/2023 07/20/2023 07/20/2023 10:50 AM CDT COVID-19 Rule Out 07/20/2023 07/20/2023 07/22/2023 1:29 AM CDT COVID-19 Rule Out 02/09/2024 02/09/2024 02/09/2024 4:11 PM CDT COVID-19 Rule Out 03/13/2024 03/13/2024 03/13/2024 10:01 AM SEAM SEWER COVID-19 Rule Out 06/24/2024 06/24/2024 06/24/2024 1:55 PM SEAM SEWER Assessment Noted Time PHQ-9 Depression Total Score: 8 08/26/19 2:44 PM CDT documented as of this encounter Care Teams Cook Fruit Relationship Specialty Start Date End Date Maci Harris FNP [address] [place] [address] PCP - General Nurse Practitioner Family 08/25/22 Bailee Mata, SIMI [address] [place] [address] NURSE PRACTITIONER 08/25/22 documented as of this encounter
--- OUTSIDE RECORDS SUMMARY | 2024-12-23 17:27 | XMS_ITS | Encounter Summary ---
Author Organization [facility] Address [address] [place] [address] Care Team Providers Care Indian Nanny Name Role Phone Kristofer Lora MD Primary Care Provider Bailee Stewart NP Primary Care Provider Maci Shin Primary Care Provider [phone] Bailee Mata NP Unavailable Unavailable Encounter Details Date Type Department Care Team (Late st Contact Info) Description 07/02/2018 Abstract [facility] CONVERSION [address] [place] [address] , Generic Conversion, Social History Tobacco Use Types Packs/Day Years Used Date Smoking Tobacco: Never Smokeless Tobacco: Never Alcohol Use Standard Drinks/Week Comments Yes 0 (1 standard drink = 0.6 oz pur e alcohol) Comments Unknown Sex and Gender Information Value Date Recorded Sex Assigned at Female 07/20/2023 11:47 AM CDT Legal Sex Female 6:04 PM CDT Gender Identity Female 07/20/2023 11:47 AM CDT Sexual Orientation Straight 07/20/2023 11 :47 AM CDT documented as of this encounter Plan [...] Rule Out 03/13/2024 03/13/2024 03/13/2024 10:01 AM COAL PIPELINE OPERATOR COVID-19 Rule Out 06/24/2024 06/24/2024 06/24/2024 1:55 PM COAL PIPELINE OPERATOR documented as of this encounter Care Teams Indian Nanny Relationship Specialty Start Date End Date Kristofer Lora MD PCP - General 11/30/16 01/28/19 Bailee Mata, SENIOR CISCO NETWORK ENGINEER PCP - General NURSE PRACTITIONER 01/29/19 08/24/22 Maci Harris FNP [address] [place] [address] PCP - General Nurse Practitioner Family 08/25/22 Bailee Mata, SENIOR CISCO NETWORK ENGINEER NURSE PRACTITIONER 08/25/22 documented as of this encounter
--- OUTSIDE RECORDS SUMMARY | 2024-12-23 17:27 | XMS_ITS | Encounter Summary ---
Author Organization [facility] Address [address] [place] [address] Care Team Providers Care Chucking And Boring Machine Operator Name Role Phone Maci Harris Primary Care Provider Bailee Mata BREEDING MANAGER Unavailable Unavailable Encounter Details Date Type Department Care Team (Late st Contact Info) Description 05/07/2023 aWheret Message Enc [facility] Medical Group Family & Internal Medicine [place] [place] [address] Maci Harris FNP [facility] [place] [address] Bronchitis Social History Tobacco Use Types Packs/Day Years [...] AM CDT documented as of this encounter Progress Notes * RONALD Welsh - 05/09/2023 9:40 AM CST Needs testing FITTER HELPER documented in this encounter Plan of Treatment Not on [...] Rule Out 03/13/2024 03/13/2024 03/13/2024 10:01 AM PIPEFITTER HELPER COVID-19 Rule Out 06/24/2024 06/24/2024 06/24/2024 1:55 PM PIPEFITTER HELPER Assessment Noted Time PHQ-9 Depression Total Score: 8 08/26/19 2:44 PM CDT documented as of this encounter Care Teams Chucking And Boring Machine Operator Relationship Specialty Start Date End Date Maci Harris FNP [address] [place] [address] PCP - General Nurse Practitioner Family 08/25/22 Bailee Mata NP [address] [place] [address] NURSE PRACTITIONER 08/25/22 documented as of this encounter
--- OUTSIDE RECORDS SUMMARY | 2024-12-23 17:28 | XMS_ITS | Continuity of Care Document ---
Author Organization [facility] Address [address] [facility] [address] [place] [address] Phone Care Team Providers Care Finished Cigar Maker Name Role Phone EllaignacioMaddiTree Unavailable Unavailable Procedures Procedure Date Eye Exam, New Patient Advance Directives Directive Yes / No Effective Date File Name No Information Encounters Encounter Description Practice Location Reason(s) For Visit Diagnoses Date Provider Providers Copied on Encounter [facility], [address] [place], [place], [id number], [place] tel:[phone] [facility] No Information [address] [facility] [address], [place], [address], [place]. tel:[phone] Family History Family Member Type Diagnosis Age At Onset No Information Payers Payer name Insurance type Covered democrat ID Authoriza tion(s) No Information Social History Type Description Quantity Date Captured Comments Sex Female Smoking Status No Information Chief Complaint And Reason For Visit No Information Reason For Referral Reason For Referral No Information History Of Present Illness Encounter Date Complaint History Of Prese nt Illness No Information Functional Status Date Functional Assessmen t No Information Instructions Date Instruction Additional Infor mation No Information Assessments Type Assessment Date No Information Patient Care Teams Name Effective Dates (start - stop) Status Members No Information
--- OUTSIDE RECORDS SUMMARY | 2024-12-23 17:28 | XMS_ITS | Clinical Summary ---
Author Organization [facility] Address [address] [place] [address] Care Team Providers Care Assistant Distribution Manager Name Role Phone VaughnMaci fernandez RONALD Primary Care Provider [phone] Bailee Mata NP Unavailable Unavailable Allergies Active Allergy Reactions Criticality Noted Date Comments Latex Unknown 08/25/2022 Medications albuterol sulfate HFA (PROAIR HFA) 108 (90 Base) MCG/ACT inhalerIndicatio ns:Bronchitis,Wh eezing,Mild persistent asthma with acute exacerbation ([facility]/HCC) Inhale 2 puffs into the lungs every 4 (four) hours as needed for Wheezing. 18 g 5 3 Active busPIRone (BUSPAR) 5 MG tabletIndication s:Generalized anxiety disorder TAKE 1 TABLET(5 MG) BY MOUTH THREE TIMES DAILY NEEDED FOR ANXIETY OR PANIC ATTACKS 90 tablet 3 4 Active Additional Information Patient not taking.Reported on 12/04/2024 neomycin-polymyx in-hydrocortison e (CORTISPORIN) otic solutionIndicati ons:Acute otitis externa of both ears, unspecified type Place 3 drops into both ears 3 (three) times daily for 10 days. 10 mL 5 025 Active Problems Problem Noted Date Diagnosed Date Benign paroxysmal positional vertigo, unspecified laterality 09/17/2024 Trigger finger of left thumb 06/05/2024 Assessment & Plan (06/05/2024 5:51 AM MILLER FIRST): Recommendation at this time, we went over the risks the benefits as well as the alternatives. She's already utilizing a hand-brace. So we'll continue with that. She had been trying ibuprofen, but it was more intermittent. We will get her set up with Meloxicam 15 milligrams once a day as a more steady anti-inflammatory and then we will see her back if she she wants to consider, a steroid injection and or surgical excision and release. Ganglion cyst 06/05/2024 Ganglion cyst of finger of left hand 06/05/2024 Gestational diabetes mellitus (HHS/HCC) 04/19/20 Overview (04/19/2023): probable DM2, on metformin 1000 g HS and 6units NPH nightly; Normal echo 03/11 Vitamin D deficiency 09/12/2022 Generalized skin cysts 09/12/2022 Generalized anxiety disorder 08/31/2022 Chronic migraine without aur a without status migrainosus, not intractable 08/31/2022 Moderate episode of recurrent major depressive d isorder 08/31/2022 Hx of gestational diabetes mellitus, not current ly 08/31/2022 Class 1 obesity due to exces s calories without serious comorbidity with body mass index (BMI) of 31.0 to 31.9 in adult 08/31/2022 Asthma (HHS/HCC) 08/25/2022 Carrier of group B Streptococcus 05/25/2021 Cough 07/13/2018 Atypical squamous cells of u ndetermined significance (ASCUS) on Papanicolaou smear of cervix 03/25/2014 Overview (04/19/2023): Papanicolaou smear of cervix with atypical squamous cells of undetermined significance (ASC-US);Recorded Elsewhere: No Location: [facility] Source: EHR Chronic: N Practice ID: [id number] Billable Time: 02:29:55 PM Resolved Problems Problem Noted Date Diagnosed Date Resolved Date [facility]/25[facility] 08/25/2022 Moderate persistent asthma w ith acute exacerbation (HHS/HCC) 07/14/2018 08/31/2022 Bronchitis 07/13/2018 08/31/2022 Asthma ([facility]/HCC) 06/26/2018 08/31/2022 Wears contact lenses 01/18/2018 020 Wears glasses 01/18/2018 01/17/2020 Anxiety 10/21/2014 08/31/2022 Encounters Date Type Department Care Team Description 12/04/2024 10:40 AM CDT Office Visit [facility] Family & Internal Medicine [address] [address] Nathaniel Ann PA Ear Problem (Ears hurting-also had dental work yesterday-had crown-having a lot of right jaw pain too) 12/04/2024 Travel 10/24/2024 2:00 PM CDT Office Visit [facility] Family & Internal [address] [address] Pastora Crews APRN Swollen Glands (Right side of neck. All pain started yesterday ); Earache (Right ear pain and drainage); Headache; Jaw Pain; Sinus Problem (Pt has history of sinus issues) 10/24/2024 Travel from Last 3 Months Immunizations Immunization Administration Dates Next Due Influenza Adult (Generic) 05/07/2021,04/14/2020, 04/26/2016 Tdap (Generic) 05/07/2021 Family History Medical History Relation Comments Heart Disease Brother Hypertension Brother Cerebrovascular accident Father Diabetes Father Hypertension Father Stroke Father COPD Mother Alzheimers Other Diabetes Other Seizures Other cardiac disorder Other malignant neoplasm of thyroid Other Heart Attack Paternal Grandfather Cancer Paternal Grandmother Relation Status Comments Brother Alive Father Maternal Grandfather Alive Maternal Grandmother Alive Mother Alive Other Paternal Grandfather Paternal Grandmother Social History Tobacco Use Types Packs/Day Years Used Date Smoking Tobacco: Never Passive Smoke Exposure: Past Smokeless Tobacco: Never Tobacco Cessation:Counseling Given: Not Answered Alcohol Use Standard Drinks/Week Comments Never 0 (1 standard drink = 0.6 oz pur e alcohol) PHQ-2 Answer Date Recorded Patient Health Questionnaire-2 Score 0 05/17/2024 Comments No Sex and Gender Information Value Date Recorded Sex Assigned at Female 07/20/2023 11:47 AM CDT Legal Sex Female 6:04 PM CDT Gender Identity Female 07/20/2023 11:47 AM CDT Sexual Orientation Straight 07/20/2023 11 :47 AM CDT Last Filed Vital Signs Vital Sign Reading Time Taken Comments Blood Pressure 138/89 12/04/2024 10:37 AM CDT Pulse 66 12/04/2024 10:37 AM CDT Temperature 36.6 C (97.9 F) 12/04/2024 10:37 AM CDT Respiratory Rate 20 12/04/2024 10:37 AM CDT Oxygen Saturation 100% 12/04/2024 10:37 AM CDT Inhaled Oxygen Concentration - - Weight 78 kg (172 lb) 12/04/2024 10:37 AM CDT Height 161.3 cm (5' 3.5) 12/04/2024 10:37 AM CD T Body Mass Index 29.99 12/04/2024 10:37 AM CDT Plan of Treatment Health Maintenance Due Date Last Done Comments Annual Physical 11/02/1995 Hepatitis C 2010 Hepatitis B Vaccines (1 of 3 - 19+ 3-dose series) 11/02/2011 Pneumococcal Vaccine: Pediat rics (0 to 5 Years) and At-Risk Patients (6 to 49 Years) (1 of 2 - PCV) 11/02/2011 HPV Vaccines (1 - 3-dose SCD M series) 11/02/2019 Cervical Cancer Screening Pa p with HPV Testing (Age 30 to 64) Every 5 Years 2022 COVID-19 Vaccine ( - 2023-2 5 season) 2024 Cervical Cancer Screening Pa p Smear (Age 30 to 64) Every 3 Years 10/07/2024 10/07/2021 Cervical Cancer Screening with HPV 10/07/2024 DTaP, Tdap and Td Vaccines ( 2 - Td or Tdap) 05/07/2031 05/07/2021 PHQ-2 (Physician Platinum) Completed 05/17/2024 Meningococcal B Vaccine Aged Out No l onger eligible based on patient's age to complete this topic Meningococcal Vaccine Aged Out No maryjane lesley eligible based on patient's age to complete this topic RSV Immunizations Under 20 Months Aged Out No longer eligible based on patient's age to complete this topic Insurance Care Teams Assistant Distribution Manager Relationship Specialty Start Date End Date Maci Harris FNP [address] [place] [address] PCP - General Nurse Practitioner Family 08/25/22 Bailee Mata NP [address] [place] [address] NURSE PRACTITIONER 08/25/22
--- OUTSIDE RECORDS SUMMARY | 2024-12-23 17:28 | XMS_ITS | Encounter Summary ---
Author Organization [facility] Address [address] [place] [address] Care Team Providers Care Diplomatic Courier Name Role Phone Maci Harris Primary Care Provider [phone] Bailee Mata STRETCH BOX TENDER Unavailable Unavailable Encounter Details Date Type Department Care Team (Late st Contact Info) Description 11/07/2022 MyQuoteAppt Message Enc [facility] Family & Internal Medicine [place] [id number] [place] [id number] Maci Harris FNP [address] [place] [address] Migraine medicine Social History Tobacco Use Types Packs/Day Years [...] Rule Out 03/13/2024 03/13/2024 03/13/2024 10:01 AM DECORATING MACHINE TENDER COVID-19 Rule Out 06/24/2024 06/24/2024 06/24/2024 1:55 PM DECORATING MACHINE TENDER Assessment Noted Time PHQ-9 Depression Total Score: 8 08/26/19 2:44 PM CDT documented as of this encounter Care Teams Diplomatic Courier Relationship Specialty Start Date End Date Maci Harris FNP [address] [place] [address] PCP - General Nurse Practitioner Family 08/25/22 Bailee Mata NP [address] [place] [address] NURSE PRACTITIONER 08/25/22 documented as of this encounter
--- OUTSIDE RECORDS SUMMARY | 2024-12-23 17:28 | XMS_ITS | Clinical Summary ---
Author Organization [facility] Address [address] [place] [address] Care Team Providers Care Quarter Supervisor Name Role Phone Yosvany Robert MD Primary Care Provider [phone] Source Comments [facility],non-owned Affiliates and Associated Physician Practices is amultiple site organization consisting of ambulatory clinics and hospital sitesin [place], [place], [place] and [place]. This disclosure is being madepursuant to the Care Everywhere program and may not contain all information available regarding this patient. Last updated 18.[facility] Allergies Active Allergy Reactions Criticality Noted Date Comments Codeine Nausea and/or Vomiting 02/14/2019 Medications * Be aware that medications may not be up to date on this document. Alwaysverify current medications with the patient. meclizine (ANTIVERT) 25 MG tablet Take 1 tablet by mouth 3 times daily as needed for Dizziness 90 tablet 9 Active ondansetron (ZOFRAN) 4 MG tablet Take 1 tablet by mouth every 6 hours as needed for Nausea/Vomitin g 10 tablet 9 Active Active Problems Problem Noted Date Diagnosed Date NEGATIVE PAST MEDICAL HISTORY - SEE PROBLEM LIST Social History Tobacco Use Types Packs/Day Years Used Date Smoking Tobacco: Never Smokeless Tobacco: Never Alcohol Use Standard Drinks/Week Comments No 0 (1 standard drink = 0.6 oz pur e alcohol) Comments Unknown Sex and Gender Information Value Date Recorded Sex Assigned at Not on file Legal Sex Female 6:30 PM PHYSICIAN ALLERGIST IMMUNOLOGIST Gender Identity Not on file Sexual Orientation Not on file Last Filed Vital Signs Vital Sign Reading Time Taken Comments Blood Pressure 127/75 02/14/2019 2:45 PM CDT Pulse 84 02/14/2019 2:45 PM CDT Temperature 37.3 C (99.2 F) 02/14/2019 12:00 PM CDT Respiratory Rate 12 02/14/2019 2:45 PM CDT Oxygen Saturation 100% 02/14/2019 2:45 PM CDT Inhaled Oxygen Concentration - - Weight 81.6 kg (180 lb) 02/14/2019 12:00 PM CDT Height 160 cm (5' 3) 02/14/2019 12:00 PM CDT Body Mass Index 31.89 02/14/2019 12:00 PM CDT Plan of Treatment Health Maintenance Due Date Last Done Comments HIV SCREENING 11/02/2007 HEPATITIS C SCREENING 10/28/2010 DTAP/TDAP/TD VACCINES (1 - Tdap) 11/02/2011 HEPATITIS B VACCINE (1 of 3 - 19+ 3-dose series) 11/02/2011 HPV VACCINE (1 - 3-dose SCDM series) 11/02/2019 COVID-19 VACCINE (1 - 2023-2 5 season) 2024 DEPRESSION SCREENING 05/08/2024 INFLUENZA VACCINE (#1) 2025 0, 04/26/2016 ZOSTER VACCINE (1 of 2) 2042 HIB VACCINE Aged Out No longer eligi ble based on patient's age to complete this topic MENINGOCOCCAL (Group B) VACCINE SHARED DECISION-MAKING Aged Out No longer eligible based on patient's age to complete this topic MENINGOCOCCAL GROUPS A/C/Y/W VACCINE Aged Out No longer eligible b ased on patient's age to complete this topic PNEUMOCOCCAL VACCINE Aged Out No long er eligible based on patient's age to complete this topic Insurance PAYOR GENERIC ANTHEM ANTHEM PAYOR GENERIC Care Teams Quarter Supervisor Relationship Specialty Start Date End Date Yosvany Robert MD PCP - General Family Medicine 09/05/18
--- OUTSIDE RECORDS SUMMARY | 2024-12-23 17:28 | XMS_ITS | Encounter Summary ---
Author Organization [facility] Address [facility] [place] [address] Care Team Providers Care Missile Facilities Repairer Name Role Phone VaughnMaci fernandez RONALD Primary Care Provider [phone] Bailee Mata TUBE TESTER Unavailable Unavailable Encounter Details Date Type Department Care Team (Late st Contact Info) Description 11/02/2022 MyChart Message Enc [facility] [address] [place] [id number] [facility], [facility] Provider Air Quality Message Social History Tobacco Use Types Packs/Day Years [...] Rule Out 03/13/2024 03/13/2024 03/13/2024 10:01 AM RN CARDIAC COVID-19 Rule Out 06/24/2024 06/24/2024 06/24/2024 1:55 PM RN CARDIAC Assessment Noted Time PHQ-9 Depression Total Score: 8 08/26/19 2:44 PM CDT documented as of this encounter Care Teams Missile Facilities Repairer Relationship Specialty Start Date End Date Maci Harris FNP [address] [place] [address] PCP - General Nurse Practitioner Family 08/25/22 Bailee Mata NP [address] [place] [address] NURSE PRACTITIONER 08/25/22 documented as of this encounter
--- OUTSIDE RECORDS SUMMARY | 2024-12-23 17:28 | XMS_ITS | Encounter Summary ---
Author Organization [facility] Address [address] [place] [address] Care Team Providers Care Canopy Inspector Name Role Phone Maci Harris Primary Care Provider [phone] Bailee Mata METAL MOULDER'S ASSISTANT Unavailable Unavailable Encounter Details Date Type Department Care Team (Late st Contact Info) Description 07/20/2023 VenueAgentt Message Enc [facility] Family & Internal Medicine [id number] [place] [address] Maci Harris FNP [facility] [place] [address] Test results from 07/19 Social History Tobacco Use Types Packs/Day Years Used Date Smoking Tobacco: Never Passive Smoke Exposure: Past Smokeless Tobacco: Never Alcohol Use Standard Drinks/Week Comments Never 0 (1 standard drink = 0.6 oz pur e alcohol) PHQ-2 Answer Date Recorded Patient Health Questionnaire-2 Score 0 07/20/2023 Comments No Sex and Gender Information Value Date Recorded Sex Assigned at Female 07/20/2023 11:47 AM CDT Legal Sex Female 6:04 PM CDT Gender Identity Female 07/20/2023 11:47 AM CDT Sexual Orientation Straight 07/20/2023 11 :47 AM CDT documented as of this encounter Functional Status * Over the past 2 weeks, how often have you been bothered by any of the following problems? Question Answer Date of Assessment Author Status Little interest or pleasure in doing things Not at all 07/20/2023 9:31 AM CDT Pastora Givens RTR Active Feeling down, depressed, or hopeless Not at all 07/20/2023 9:31 AM CDT Chelsey Givens RTR Active Patient Health Questionnaire-2 Score 0 07/20/2023 9:31 AM CDT Pastora Givens RTR Active * Question Answer Date of Assessment Author Status Trouble falling or staying asleep, or sleeping too much Not at all 07/20/2023 9:31 AM CDT Pastora Givens RTR Active Feeling tired or having little energy Not at all 07/20/2023 9:31 AM CDT Pastora Givens RTR Active Poor appetite or overeating Not at all 07/20/2023 9:31 AM CDT Pastora Givens RTGage Active Feeling bad about yourself - or that you are a failure or have let yourself or your family down Not at all 07/20/2023 9:31 AM CDPastora Scales RTGage Active Trouble concentrating on things, such as reading the newspaper or watching television Several days 07/20/2023 9:31 AM CDT Pastora Givens RTGage Active Moving or speaking so slowly that other people could have noticed? Or the opposite - being so fidgety or restless that you have been moving around a lot more than usual. Not at all 07/20/2023 9:31 AM CDT Pastora Givens RTR Active Thoughts that you would be better off or hurting yourself in some way Not at all 07/20/2023 9:31 AM CDT Pastora Givens RTGage Active Patient Health Questionnaire-9 Score 1 07/20/2023 9:31 AM CDT Pastora Givens RTR Active documented as of this encounter Plan of [...] Rule Out 03/13/2024 03/13/2024 03/13/2024 10:01 AM MANUFACTURING TECHNOLOGY PROFESSOR COVID-19 Rule Out 06/24/2024 06/24/2024 06/24/2024 1:55 PM MANUFACTURING TECHNOLOGY PROFESSOR Assessment Noted Time PHQ-9 Depression Total Score: 1 07/20/19 9:31 AM CDT documented as of this encounter Care Teams Canopy Inspector Relationship Specialty Start Date End Date Maci Harris FNP [facility] [place] [address] PCP - General Nurse Practitioner Family 08/25/22 Bailee Mata, SIMI [address] [place] [address] NURSE PRACTITIONER 08/25/22 documented as of this encounter
--- OUTSIDE RECORDS SUMMARY | 2024-12-23 17:30 | XMS_ITS | Continuity of Care Document ---
Author Organization [facility] Address [address] [facility] [address] [place] [address] Phone Care Team Providers Care Production Machine Shop Supervisor Name Role Phone EllaignacioMaddiTree Unavailable Unavailable Procedures Procedure Date Eye Exam, New Patient Advance Directives Directive Yes / No Effective Date File Name No Information Encounters Encounter Description Practice Location Reason(s) For Visit Diagnoses Date Provider Providers Copied on Encounter [facility], [address] [place], [place], [id number], [place] tel:[phone] [facility] No Information [address] [facility] [address], [place], [address], [place]. tel:[phone] Family History Family Member Type Diagnosis Age At Onset No Information Payers Payer name Insurance type Covered green party ID Authoriza tion(s) No Information Social History [...]
[2024-12-23 17:37] VITALS: BP 143/96; PULSE 85; RESP 18; TEMP 36.5; O2SAT 100
--- NOTE | 2024-12-23 18:31 | ED_ITS ---
HPI - URI/Sore Throat General Chief Complaint: Upper Respiratory Infection Stated Complaint: Sinus / Ear Infection Time Seen by Provider: 12/23/24 18:24 Source: patient and RN notes reviewed Mode of arrival: ambulatory Limitations: no limitations History of Present Illness HPI Narrative: Patient presents today with a 3 day history of cough, congestion, rhinorrhea, sore throat, and bilateral ear pain. States her ear pain radiates to her left jaw. Denies fever, shortness of breath. She rates her pain 7/10 today and has been taking ibuprofen and Zyrtec with mild relief. Related Data Home Medications ?Medication ?Instructions ?Recorded ?Confirmed ?Last Taken ?Type No Home Medications 12/23/24 12/23/24 Unknown History Allergies Allergy/AdvReac Type Severity Reaction Status Date / Time latex Allergy Mild Rash Verified 12/23/24 17:50 [facility] Family History Family History Sibling Mechanical heart valve present Grandparent Heart attack Grandparent Heart attack Cancer Diverticulitis Grandparent Alzheimer disease Grandparent Alzheimer disease Mother Emphysema lung Chronic obstructive pulmonary disease Father Diabetes mellitus Cerebrovascular accident Social History Social History Smoking status: Never smoker Second hand tobacco smoke exposure: No Alcohol intake: never Substance use: never Spiritual care concerns: No Comments At time of signature, I have reviewed and agree with nursing past medical, surgical, social and family history unless otherwise noted. Please see nursing chart for further information. There is no relevant family history pertinent to the presenting complaint Exam Narrative: GENERAL: Mildly ill-appearing, well-nourished, and in no acute distress. HEAD: Normocephalic, atraumatic. EYES: EOMI. No redness or drainage. Conjunctivae normal. ENT: Mucous membranes pink and moist. Nares congested breath rhinorrhea. TMs normal bilaterally. Throat mildly erythematous without edema or exudate. Uvula midline. NECK: Normal AROM. Supple. Bilateral anterior cervical chain lymphadenopathy and tenderness to palpation. CHEST: No respiratory distress. Clear to auscultation. HEART: Regular rate and rhythm. No murmur appreciated. EXTREMITIES: Normal range of motion. No edema. SKIN: Warm, dry, no rash. Capillary refill normal. Normal skin turgor. NEURO: No focal deficits. Alert and oriented x3. Gait steady. PSYCH: Normal affect. No signs of depression or anxiety. Course Course Level of Care: Express Care Visit Vital Signs Vital signs: Vital Signs Temperature 97.7 F 12/23/24 17:37 Pulse Rate 85 12/23/24 17:37 Respiratory Rate 18 12/23/24 17:37 Blood Pressure 143/96 H 12/23/24 17:37 Pulse Oximetry 100 12/23/24 17:37 Oxygen Delivery Room Air 12/23/24 17:37 Temperature 97.7 F 12/23/24 17:37 Pulse Rate 85 12/23/24 17:37 Respiratory Rate 18 12/23/24 17:37 Blood Pressure 143/96 H 12/23/24 17:37 Pulse Oximetry 100 12/23/24 17:37 Oxygen Delivery Room Air 12/23/24 17:37 Reviewed MDM - URI/Sore Throat MDM Narrative Medical decision making narrative: 34-year-old female patient with a 3 day history of cough, congestion, rhinorrhea, sore throat, bilateral ear pain that radiates to the left jaw. Taking sjkq-gpt-xceadip ibuprofen and Zyrtec with mild relief and currently rates her pain 7/10. Rapid strep negative. Culture pending. Declines COVID-19 testing. Symptoms likely viral in etiology. Discussed ring-zyr-[id number] medication use and duration of illness. No prescription medications indicated at this time. Anticipatory guidance given. Vital signs stable. Differential Diagnosis Differential diagnosis: Likely upper respiratory infection, otitis media, sinusitis, viral infection, pharyngitis and other (Strep throat, COVID) Lab Data Attestation: I reviewed the patient's lab results. Labs: Lab Results 12/23/24 Range/Units 18:41 POC Grp A Strep Screen Negative (Negative) Critical Care Time Critical Care Time Critical Care Time: No Discharge Plan Discharge Clinical Impression: Upper respiratory infection Qualifiers: URI type: unspecified URI Qualified Code(s): J06.9 - Acute upper respiratory infection, unspecified Patient Disposition: Home Condition: Stable Instructions: Upper Respiratory Infection (DC) Additional Instructions: Your rapid strep swab was negative today at [facility]. You will be notified in a few days if the culture comes back positive for strep, and appropriate antibiotics will be called in for you at that time. Your symptoms are likely due to a viral illness, which is not treated with antibiotics. Viral symptoms can be present for up to 7-10 days. Take Tylenol or ibuprofen for fever or pain. You may consider some Sudafed or Flonase as well Rest and stay hydrated. Follow up with your PCP in 7 days if symptoms are not improving. Go to the ER immediately if you have any difficulty breathing or swallowing. Your blood pressure was elevated above 120/80 today at Urgent Care. This puts you above the threshold for follow up. Please schedule a followup visit with your personal physician as soon as possible, for further evaluation and treatment. Even blood pressure exceeding 120/80 may indicate pre-hypertension. Patient Language: Slovenian Prescriptions: No Action No Home Medications Follow-up/Referrals: FRANSICO,ANTONIETA MCMAHON [Primary Care Provider] - Time of Disposition: 18:50
[2024-12-23 18:44] LABS: EDSTREPNEGPOS1 Negative (Negative)
== END 2024-12-23 18:52 | disposition home or self-care (01) ==
PROVIDERS: Emergency Provider Nurse Practitioner; PCP Nurse Practitioner Family
DX: J02.0 Streptococcal pharyngitis (principal)
CPT/HCPCS: 87081; 87880; 99213; G0463